=== PATIENT | male | born 1955 | race Caucasian/White ===

== ENCOUNTER 2016-12-01 16:27 | Inpatient (IN) | payer MEDICARE, MEDICAID ==
--- NOTE | 2016-12-01 17:11 | ED Physician Chart ---
Chief Complaint/HPI - Patient Information Date Seen:: 12/01/16 Time Seen:: 16:40 Chief Complaint:: SERIOUS BED SORE History of Present Illness:: THIS IS A 61 YEAR OLD CHRONICALLY ILL CEREBRAL PALSY PATIENT SENT HERE FOR EVALUATION AND TREATMENT OF A STAGE THREE DECUBITI ULCER. THE ULCER HAS BEEN THERE FOR TWO MONTHS. Allergies:: Allergies Allergy/AdvReac Type Severity Reaction Status Date / Time MDX Tramadol [Tramadol] Allergy Unknown Verified 03/22/15 17:06 MDX Acetaminophen Allergy Verified 03/22/15 17:06 [From Vicodin] MDX Codeine [Codeine] Allergy Verified 03/22/15 17:06 MDX Hydrocodone Allergy Verified 03/22/15 17:06 [From Vicodin] MDX Ibuprofen [Ibuprofen] Allergy Verified 03/22/15 17:06 Vitals:: Vital Signs - 8 hr 12/01/16 16:30 Temp 97.2 F HR 86 RR 18 BP 139/75 O2 Sat % 96 Historian:: Patient, Medical Records Review:: Nurse's Note Reviewed, Transfer documents Reviewed Review of Systems - Review of Systems General/Constitutional: No fever, No chills, No weight loss, No weakness, No diaphoresis, No edema, No loss of appetite Skin: No skin lesions, No rash, No bruising Head: No headache, No light-headedness Eyes: No loss of vision, No pain, No diplopia ENT: No earache, No nasal drainage, No sore throat, No tinnitus Neck: No neck pain, No swelling, No thyromegaly, No stiffness, No mass noted Cardio Vascular: No chest pain, No palpitations, No PND, No orthopnea, No edema Pulmonary: No SOB, No cough, No sputum, No wheezing GI: No nausea, No vomiting, No diarrhea, No pain, No melena, No hematochezia, No constipation, No hematemesis G/U: No dysuria, No frequency, No hematuria Musculoskeletal: No bone or joint pain, No back pain, No muscle pain, Other ( BED SORE FOR TWO MONTHS) Endocrine: No polyuria, No polydipsia Psychiatric: No prior psych history, No depression, No anxiety, No suicidal ideation Hematopoietic: No bruising, No lymphadenopathy Allergic/Immuno: No urticaria, No angioedema Neurological: No syncope, No focal symptoms, No weakness, No paresthesia, No headache, No seizure, No dizziness, No confusion, No vertigo Past Medical History - Past Medical History Obtainable: No Past Medical History: HTN, Dyslipidemia, PUD/GERD, Other (CEREBRAL PALSY) Family History: None Social History: Non Smoker, No Alcohol, No Drug Use, Single, Care Facility Surgical History: Appendectomy, other (BRAIN SURGERY) Family Medical History - Family Member Mother History Unknown: Yes Physical Exam - Physical Examination General/Constitutional: Awake, Well-developed, well-nourished, Alert, No distress, GCS 15, Non-toxic appearing, Ambulatory Head: Atraumatic Eyes: Lids, conjuctiva normal, PERRL, EOMI Skin: Nl inspection, No rash, No skin lesions, No ecchymosis, Well hydrated, No lymphadenopathy ENMT: External ears, nose nl, Nasal exam nl, Lips, teeth, gums nl Neck: Nontender, Full ROM w/o pain, No JVD, No nuchal rigidity, No bruit, No mass, No stridor Respiratory: Nl effort/Exclusion, Clear to Auscultation, No Wheeze/Rhonchi/Rales Cardio Vascular: RRR, No murmur, gallop, rubs, NL S1 S2 GI: No tenderness/rebounding/guarding, No organomegaly, No hernia, Normal BS's, Nondistended, No mass/bruits, No McBurney tenderness Other GI comments:: STAGE III LEFT BUTTOCKS AREA : No CVA tenderness Extremities: No tenderness or effusion, Full ROM, normal strength in all extremities, No edema, Normal digits & nails Neuro/Psych: Alert/oriented, DTR's symmetric, Normal sensory exam, Judgement/ insight normal, Mood normal, No focal deficits Other Neuro/Psych comments:: THIS PATIENT HAS SPASTIC PARALYSIS OF ALL FOUR EXTREMITIES Misc: normal gait, Normal back, No paraspinal tenderness Labs/Radiology/EKG Results - Lab Results Results: Abnormal Lab Results 12/01/16 12/01/16 12/01/16 17:03 17:03 17:03 WBC 11.0 H RBC 4.23 L Hgb 11.9 L Hct 35.7 L MCV 84.4 MCH 28.1 MCHC Differential 33.3 RDW 17.4 Plt Count 245 MPV 8.8 Neutrophils % 52.2 Lymphocytes % 38.0 Monocytes % 7.1 Eosinophils % 2.4 Basophils % 0.3 PT 10.6 INR 1.02 PTT (Actin FS) 25.7 L Sodium Potassium Chloride Carbon Dioxide Anion Gap BUN Creatinine Est GFR ( Amer) Est GFR (Non-Af Amer) BUN/Creatinine Ratio Glucose Calcium Total Bilirubin AST ALT Alkaline Phosphatase Troponin I Total Protein Albumin Globulin Albumin/Globulin Ratio Triglycerides 423 H Cholesterol 173 LDL Cholesterol Direct 125 HDL Cholesterol 23 12/01/16 12/01/16 17:03 17:03 WBC RBC Hgb Hct MCV MCH MCHC Differential RDW Plt Count MPV Neutrophils % Lymphocytes % Monocytes % Eosinophils % Basophils % PT INR PTT (Actin FS) Sodium 137 Potassium 3.8 Chloride 110 H Carbon Dioxide 19.6 L Anion Gap 11.2 BUN 23 Creatinine 0.7 Est GFR ( Amer) > 60.0 Est GFR (Non-Af Amer) > 60.0 BUN/Creatinine Ratio 32.9 Glucose 105 Calcium 9.3 Total Bilirubin 0.3 AST 37 ALT 25 Alkaline Phosphatase 46 Troponin I < 0.01 L Total Protein 6.9 Albumin 3.6 L Globulin 3.3 Albumin/Globulin Ratio 1.1 Triglycerides Cholesterol LDL Cholesterol Direct HDL Cholesterol - Radiology Results Results: CHEST X-RAY = NAD - EKG Interpretations EKG Time:: 16:42 Rate & Rhythm: RATE= 77 SINUS [place]: LEFT AXIS Assessment - Assessment General Assessment: STAGE III BED SORE, ANEMIA, CERERAL PALSY ED Septic Shock - . Is Septic Shock (SBP<90, OR Lactate>4 mmol\L) present?: No - <6hrs of presentation: Vital Signs: Vital Signs - 8 hr 12/01/16 16:30 Temp 97.2 F HR 86 RR 18 BP 139/75 O2 Sat % 96 Reassessment (Disposition) - Reassessment Reassessment Condition:: Unchanged - Diagnosis Diagnosis:: DECUBITI STAGE THREE CERBRAL PALSY ANEMIA - Patient Disposition Discharge/Transfer:: Acute Care w/in this hosp Admitting Medical Physician:: Bladimir Payton
[2016-12-01 17:15] LABS: % BASOPHILS 0.3 % (0.0-2.0); % EOSINOPHILS 2.4 % (0.0-5.0); % MONOCYTES 7.1 % (2.0-10.0); % NEUTROPHILS 52.2 % (40.0-80.0); HEMATOCRIT 35.7 % (39.0-49.0); HEMOGLOBIN 11.9 gm/dL (13.2-17.3); MEAN CELL VOLUME 84.4 fl (80-99); MEAN CORPUSCULAR HEMOGLOBIN 28.1 pg (26.0-30.0); MEAN CORPUSCULAR HGB CONC 33.3 pg (28.0-36.0); MEAN PLATELET VOLUME 8.8 fl; NEUTROPHILE ABSOLUTE 5.7 Th/cmm (1.8-8.0); PLATELET COUNT 245 Th/cmm (150-400); RED BLOOD COUNT 4.23 Mil/cmm (4.30-5.70); RED CELL DISTRIBUTION WIDTH 17.4 % (11.5-20.0)
[2016-12-01 17:25] LABS: INR 1.02 (0.5-1.4); PROTHROMBIN TIME (TEST) 10.6 SECONDS (9.5-11.5)
[2016-12-01 17:32] LABS: ALB/GLOB RATIO 1.1 (1.0-1.8); ALKALINE PHOSPHATASE 46 U/L (34-104); ANION GAP 11.2 (7.0-16.0); BILIRUBIN,TOTAL 0.3 mg/dL (0.3-1.0); BUN - UREA NITROGEN 23 mg/dL (7-25); BUN/CREATININE RATIO 32.9; CALCIUM SERUM 9.3 mg/dL (8.6-10.3); CARBON DIOXIDE 19.6 mEq/L (21.0-31.0); CHLORIDE 110 mEq/L (98-107); CHOLESTEROL 173 mg/dL (<200); CREATININE - SERUM 0.7 mg/dL (0.7-1.3); GLUCOSE 105 mg/dL (70-105); POTASSIUM SERUM 3.8 mEq/L (3.5-5.1); SGOT 37 U/L (13-39); SGPT/ALT 25 U/L (7-52); SODIUM SERUM 137 mEq/L (136-145); TRIGLYCERIDES 423 mg/dL (<150)
[2016-12-01] MEDS ORDERED: Fleet Enema 135 mL RC PRN (21:04)
[2016-12-01] MEDS ORDERED: Albuterol/Ipratropium Neb 3 ML AERS HHN PRN ×2 (21:04→23:01)
[2016-12-01] MEDS ORDERED: Non-Formulary Item 1 EA (Acetaminophen [Acetaminophen] 650 MG) PO PRN ×2 (21:04)
[2016-12-01] MEDS ORDERED: Magnesium Hydroxide (MOM) 30 mL UDC PO PRN (21:04)
[2016-12-01] MEDS ORDERED: Non-Formulary Item 1 EA (Ranitidine Hcl [Ranitidine Hcl] 150 MG) PO SCH (21:04)
[2016-12-01] MEDS ORDERED: cefTRIAXone 1 GM in Sodium Chloride 0.9% 50 ML IV SCH (21:04)
[2016-12-01 21:54] VITALS: BP 152/69
[2016-12-01] MEDS ORDERED: cefTRIAXone 1 GM in 0.9% NS 50 ML IV ONE (22:15)
[2016-12-02] MEDS ORDERED: Pneumococcal Vaccine 0.5 mL Vial IM ONE (02:34)
[2016-12-02] MEDS: NEUTRA PHOS PO SCH ×2 (06:37→21:32)
[2016-12-02 07:20] LABS: % BASOPHILS 0.4 % (0.0-2.0); % EOSINOPHILS 2.6 % (0.0-5.0); HEMATOCRIT 36.4 % (39.0-49.0); MEAN CELL VOLUME 84.6 fl (80-99); MEAN CORPUSCULAR HEMOGLOBIN 27.9 pg (26.0-30.0); MEAN PLATELET VOLUME 8.5 fl; NEUTROPHILE ABSOLUTE 4.1 Th/cmm (1.8-8.0); PLATELET COUNT 219 Th/cmm (150-400); RED CELL DISTRIBUTION WIDTH 16.8 % (11.5-20.0); WHITE BLOOD COUNT 8.8 Th/cmm (4.8-10.8)
[2016-12-02 07:48] LABS: ALKALINE PHOSPHATASE 37 U/L (34-104); ANION GAP 10.2 (7.0-16.0); BILIRUBIN,TOTAL 0.3 mg/dL (0.3-1.0); BUN - UREA NITROGEN 20 mg/dL (7-25); BUN/CREATININE RATIO 33.3; CALCIUM SERUM 9.6 mg/dL (8.6-10.3); CARBON DIOXIDE 20.7 mEq/L (21.0-31.0); CHLORIDE 109 mEq/L (98-107); CHOLESTEROL 176 mg/dL (<200); CREATININE - SERUM 0.6 mg/dL (0.7-1.3); GLUCOSE 86 mg/dL (70-105); MAGNESIUM 1.9 mg/dL (1.9-2.7); POTASSIUM SERUM 3.9 mEq/L (3.5-5.1); SGOT 31 U/L (13-39); SGPT/ALT 21 U/L (7-52); SODIUM SERUM 136 mEq/L (136-145); TRIGLYCERIDES 296 mg/dL (<150)
[2016-12-02] MEDS ORDERED: ARGININE SCH (09:00)
[2016-12-02] MEDS ORDERED: OMEGA ACID ETHYL ESTERS PO SCH (09:00)
[2016-12-02] MEDS ORDERED: ISOSORBIDE DINITRATE 5 MG PO SCH (09:00)
[2016-12-02] MEDS ORDERED: ASPIRIN 81 MG PO SCH (09:00)
[2016-12-02] MEDS ORDERED: TICAGRELOR 90 MG PO SCH (09:00)
[2016-12-02] MEDS ORDERED: Non-Formulary Item 1 EA (Omeprazole [Omeprazole] 40 MG) PO SCH (09:00)
[2016-12-02] MEDS ORDERED: Non-Formulary Item 1 EA (Ascorbic Acid [Vitamin C] 500 MG) PO SCH (09:00)
[2016-12-02] MEDS ORDERED: LISINOPRIL 10 MG PO SCH (09:00)
[2016-12-02] MEDS: Fish Oil 1,000 MG SGL PO SCH ×2 (09:58→17:55)
[2016-12-02] MEDS: Pantoprazole 40 mg EC Tab PO SCH (09:59)
[2016-12-02] MEDS: Calcium Carb/Vit D 500 mg/200 U Tab PO SCH ×2 (10:00→18:06)
[2016-12-02] MEDS: Aspirin 81mg Chewable Tab PO SCH (10:00)
[2016-12-02] MEDS: Diclofenac 75 mg Tab PO SCH ×2 (10:00→17:56)
--- NOTE | 2016-12-02 10:51 | Diagnostic Imaging Report ---
Portable chest x-ray HISTORY: Shortness of breath The heart is enlarged. Atherosclerotic vascular calcification seen in the aorta. No acute focal pulmonary processes. IMPRESSION: 1. No acute focal pulmonary processes 2. Cardiomegaly with atherosclerotic vascular changes
--- NOTE | 2016-12-02 16:23 | Consultation ---
Consult Note - Consult Note Service Date: 12/02/16 Consult Note: PHYSICIAN Consultation Note: Date of Admission: 12/01/16 Purpose of Consultation: Chief Complaint: History of Present Illness: Patient STEVIE TORRES was admitted to [facility] I with NON HEALING DECUB ULCER. Past Medical History: Diagnoses ANEMIA, UNSPECIFIED (12/01/16) ELEVATED WHITE BLOOD CELL COUNT, UNSPECIFIED (12/01/16) HYPERLIPIDEMIA, UNSPECIFIED (12/01/16) UNSPECIFIED INTELLECTUAL DISABILITIES (12/01/16) CEREBRAL PALSY, UNSPECIFIED (12/01/16) PARALYTIC SYNDROME, UNSPECIFIED (12/01/16) ESSENTIAL (PRIMARY) HYPERTENSION (12/01/16) PRESSURE ULCER OF SACRAL REGION, STAGE 3 (12/01/16) UNSPECIFIED OSTEOARTHRITIS, UNSPECIFIED SITE (12/01/16) Allergies Allergy/AdvReac Type Severity Reaction Status Date / Time acetaminophen [From Vicodin] Allergy Verified 12/01/16 17:07 codeine Allergy Verified 12/01/16 17:09 hydrocodone [From Vicodin] Allergy Verified 12/01/16 17:07 ibuprofen Allergy Verified 12/01/16 17:08 Vital Signs Temp 97 F 12/02/16 11:57 Pulse 82 12/02/16 11:57 Resp 19 12/02/16 11:57 BP 99/64 12/02/16 11:57 Pulse Ox 95 12/02/16 11:57 Intake & Output 12/01/16 12/02/16 12/02/16 18:59 06:59 18:59 Intake Total 360 Balance 360 Weight (lbs) 79.832 kg 79.832 kg Intake: Oral 360 Other: # Voids 4 # Bowel Movements 1 Stool Characteristics Soft Soft Formed Laboratory Results - last 24 hr 12/02/16 12/02/16 12/02/16 06:36 06:36 06:36 WBC 8.8 RBC 4.30 Hgb 12.0 L Hct 36.4 L MCV 84.6 MCH 27.9 MCHC Differential 33.0 RDW 16.8 Plt Count 219 MPV 8.5 Neutrophils % 46.0 Lymphocytes % 43.0 Monocytes % 8.0 Eosinophils % 2.6 Basophils % 0.4 ESR 24 H Sodium 136 Potassium 3.9 Chloride 109 H Carbon Dioxide 20.7 L Anion Gap 10.2 BUN 20 Creatinine 0.6 L Est GFR ( Amer) > 60.0 Est GFR (Non-Af Amer) > 60.0 BUN/Creatinine Ratio 33.3 Glucose 86 Calcium 9.6 Magnesium 1.9 Total Bilirubin 0.3 AST 31 ALT 21 Alkaline Phosphatase 37 C-Reactive Protein 0.3 Total Protein 7.3 Albumin 3.6 L Globulin 3.7 Albumin/Globulin Ratio 1.0 Triglycerides 296 H Cholesterol 176 LDL Cholesterol Direct 134 HDL Cholesterol 25 TSH 12/02/16 06:36 WBC RBC Hgb Hct MCV MCH MCHC Differential RDW Plt Count MPV Neutrophils % Lymphocytes % Monocytes % Eosinophils % Basophils % ESR Sodium Potassium Chloride Carbon Dioxide Anion Gap BUN Creatinine Est GFR ( Amer) Est GFR (Non-Af Amer) BUN/Creatinine Ratio Glucose Calcium Magnesium Total Bilirubin AST ALT Alkaline Phosphatase C-Reactive Protein Total Protein Albumin Globulin Albumin/Globulin Ratio Triglycerides Cholesterol LDL Cholesterol Direct HDL Cholesterol TSH 2.04 Home Medication Medication Instructions Recorded Type Acetaminophen 650 mg PO Q4H PRN 02/14/14 History Acetaminophen 650 mg PO Q4H PRN 02/14/14 History Ascorbic Acid [Vitamin C] 500 mg PO DAILY 02/14/14 History Aspirin [Low Dose Aspirin] 81 mg PO DAILY 02/14/14 History Bisacodyl [Dulcolax] 10 mg RC Q96HR PRN 02/14/14 History Calcium/Vitamin D [Calcium 1 tab PO BID 02/14/14 History Carbonate/Vitamin D 600 mg-400 Iu] Diclofenac Sodium [Diclofenac 75 mg PO BID 02/14/14 History Sodium D-R] Docusate Sodium [Dss] 200 mg PO BID 02/14/14 History Fenofibrate [Tricor] 145 mg PO DAILY 02/14/14 History Finasteride 5 mg PO QPM 02/14/14 History Isosorbide Dinitrate 5 mg PO BID 02/14/14 History Lisinopril 10 mg PO DAILY 02/14/14 History Magnesium Hydroxide [Mom] 30 ml PO Q72HR PRN 02/14/14 History Melatonin 3 mg PO HS 02/14/14 History Multimineral/Multivitamin 1 tab PO DAILY 02/14/14 History [Multivitamin & Multimineral] Na Phos, Dibasic/Na Phos, Mo 1 bottle RC Q96H PRN 02/14/14 History [Fleet Enema] Nitroglycerin [Nitrostat] 0.4 mg SL Q5MIN PRN 02/14/14 History [id number] Ethyl Esters [Lovaza] 2 gm PO BID 02/14/14 History Ranitidine HCl [Ranitidine] 150 mg PO Q12H 02/14/14 History Simvastatin [Simvastatin*] 10 mg PO HS 02/14/14 History Ticagrelor [Brilinta] 90 mg PO BID 02/14/14 History Alendronate Sodium [Fosamax] 70 mg PO QWEEK 72903/22/15 History Cran/Vitc/Mannose/Fos/Bromeln 30 ml PO BID 03/22/15 History [Uti-Stat 30 ml] Omeprazole 40 mg PO QAM 03/22/15 History Acetaminophen [Tylenol] 650 mg PO Q4H PRN MDD 3000 mg 12/01/16 History Arginine [[id number]] 1 pow NA BID 12/01/16 History Carvedilol 6.25 mg PO BID 12/01/16 History Clonidine HCl [Catapres] 1 tab PO Q6H PRN 12/01/16 History Ipratropium/Albuterol Sulfate 1 dose INH Q2H PRN 12/01/16 History [Iprat-Albut 0.5-3(2.5) mg/3 ml] Lactobacillus Acidophilus 1 tab PO TID 12/01/16 History [Probiotic Acidophilus] Phospha 250 mg PO Q8H 12/01/16 History Sodium Bicarbonate 1 tab PO BID 12/01/16 History Tamsulosin HCl [Flomax] 1 tab PO HS 12/01/16 History Current Medications Generic Name Dose Route Start Last Admin Trade Name [facility] PRN Reason Stop Dose Admin Acetaminophen 650 mg 12/01/16 21:30 Tylenol PO 01/30/17 21:29 Q4H PRN FEVER 100 AND ABOVE Acetaminophen 650 mg 12/01/16 22:18 Tylenol PO 01/30/17 22:17 Q4H PRN PAIN Albuterol/Ipratropium 3 ml 12/01/16 23:01 Duoneb Neb HHN 01/30/17 23:00 Q2H PRN SOB OR WHEEZING Alendronate Sodium 70 mg 12/01/16 23:50 Fosamax PO 01/30/17 21:03 QWEEK 729 SANJIV Ascorbic Acid 500 mg 12/02/16 09:00 12/02/16 10:00 Vitamin C PO 01/31/17 08:59 500 mg DAILY SANJIV Administration Aspirin 81 mg 12/02/16 09:00 12/02/16 10:00 Aspirin Chewable PO 01/31/17 08:59 81 mg DAILY SANJIV Administration Bisacodyl 10 mg 12/01/16 21:04 Dulcolax 10 Mg Supp RC 01/30/17 21:03 Q96HR PRN Constipation Calcium/Vitamin D 1 tab 12/02/16 09:00 12/02/16 10:00 Oscal W/Vitamin D PO 01/31/17 08:59 1 tab BID SANJIV Administration Carvedilol 6.25 mg 12/02/16 09:00 12/02/16 09:59 Coreg PO 01/31/17 08:59 6.25 mg BID SANJIV Administration Clonidine HCl 0.1 mg 12/01/16 23:52 Catapres PO 01/30/17 21:03 Q6H PRN BP MAINTENANCE (PER PROTOCOL) Diclofenac Sodium 75 mg 12/02/16 09:00 12/02/16 10:00 Voltaren PO 01/31/17 08:59 75 mg BID SANJIV Administration Docusate Sodium 200 mg 12/02/16 09:00 12/02/16 09:59 Colace PO 01/31/17 08:59 200 mg BID SANJIV Administration Fenofibrate 134 mg 12/02/16 11:00 Tricor PO 01/31/17 10:59 DAILY SANJIV Finasteride 5 mg 12/02/16 17:00 Proscar PO 01/31/17 16:59 QPM SANJIV Fish Oil 2,000 mg 12/02/16 09:00 12/02/16 09:58 [place] 3 PO 01/31/17 08:59 2,000 mg BID SANJIV Administration Heparin Sodium (Porcine) 5,000 units 12/02/16 21:00 Heparin SUBQ 01/31/17 20:59 Q12HR SANJIV Ceftriaxone Sodium 1 gm/ 50 mls @ 100 mls/hr 12/02/16 21:00 Sodium Chloride IV 01/31/17 20:59 Q24HR SANJIV Vancomycin HCl 1.25 gm/ Sodium 250 mls @ 165 mls/hr 12/02/16 21:00 Chloride IV 01/31/17 20:59 Q12HR SANJIV Isosorbide Dinitrate 5 mg 12/02/16 09:00 12/02/16 10:00 Isordil PO 01/31/17 08:59 5 mg BID SANJIV Administration Lactobacillus Rhamnosus 1 each 12/02/16 14:00 Culturelle PO 01/31/17 13:59 TID SANJIV Lisinopril 10 mg 12/02/16 09:00 12/02/16 09:57 Zestril PO 01/31/17 08:59 10 mg DAILY SANJIV Administration Magnesium Hydroxide 30 ml 12/01/16 21:04 Milk Of Magnesia PO 01/30/17 21:03 Q72HR PRN Constipation Miscellaneous 1 ea 12/01/16 21:04 Vancomycin Iv Per Pharmacy 01/30/17 21:03 PRN PRN PROTOCOL Miscellaneous 90 mg 12/02/16 09:00 Ticagrelor [Brilinta] PO 01/31/17 08:59 BID SANJIV Nitroglycerin 0.4 mg 12/01/16 21:04 Nitrostat SL 01/30/17 21:03 Q5MIN PRN Chest Pain Pantoprazole Sodium 40 mg 12/02/16 09:00 12/02/16 09:59 Protonix PO 01/31/17 08:59 40 mg QAM SANJIV Administration Simvastatin 10 mg 12/01/16 21:04 12/02/16 03:55 Zocor PO 01/30/17 21:03 Not Given HS SANJIV Protocol Sodium Bicarbonate 650 mg 12/02/16 09:00 12/02/16 09:59 Sodium Bicarbonate PO 01/31/17 08:59 650 mg BID SANJIV Administration Sodium Phosphate 135 ml 12/01/16 21:04 Fleet Enema RC 01/30/17 21:03 Q96H PRN Constipation Sodium Phosphate 250 mg 12/02/16 05:00 12/02/16 06:37 Neutra Phos 250mg PO 01/31/17 04:59 Not Given Q8HR SANJIV Tamsulosin HCl 0.4 mg 12/01/16 23:30 12/02/16 03:56 Flomax PO 01/30/17 23:29 Not Given HS SANJIV Zolpidem Tartrate 10 mg 12/02/16 21:00 Ambien PO 01/31/17 20:59 HS PRN Insomnia Review of Systems: A 12 point ROS was reviewed with the pertinent positive and negatives noted in the HPI. Social History Smoking Status Current every day smoker Drug Use No Alcohol Use unknown Family Medical History Family Medical History Start: 12/01/16 19: 01 Freq: ONCE Status: Active Document 12/01/16 22:00 MACKENZIE (Rec: 12/02/16 01:59 MACKENZIE [id number]) Family Medical History Father Ethnicity Non- Living Status Hx Family Cancer Yes Mother Ethnicity Non- Living Status Other Medical History brain tumor Physical Exam: General: HEENT: Cardio: Respiratory: Abdominal: Genital/Urinary: Extremities: Neurological: Assessment: left hip decubitus ulcer, bone is palpable at base of ulcer. Cerebral palsy, bedridden and incontinent Plan: Suggest 1. EXcisional debridement left hip ulcer 2. Diverting colostomy for incontinence Signed, Chen Buckley [id number]
[2016-12-02] MEDS ORDERED: FINASTERIDE 5 MG PO SCH (17:00)
[2016-12-02] MEDS: Lactobacillus Rhamnosus 10 Billion CFU Capsule PO SCH (20:32)
[2016-12-02] MEDS: cefTRIAXone 1 GM in 0.9% NS 50 ML IV SCH (20:33)
[2016-12-03 06:21] LABS: % BASOPHILS 0.8 % (0.0-2.0); % EOSINOPHILS 2.3 % (0.0-5.0); % LYMPHOCYTES 33.1 % (20.0-50.0); % MONOCYTES 6.1 % (2.0-10.0); % NEUTROPHILS 57.7 % (40.0-80.0); HEMATOCRIT 38.2 % (39.0-49.0); HEMOGLOBIN 12.5 gm/dL (13.2-17.3); MEAN CELL VOLUME 85.4 fl (80-99); MEAN CORPUSCULAR HEMOGLOBIN 27.9 pg (26.0-30.0); MEAN CORPUSCULAR HGB CONC 32.6 pg (28.0-36.0); MEAN PLATELET VOLUME 8.6 fl; NEUTROPHILE ABSOLUTE 5.3 Th/cmm (1.8-8.0); PLATELET COUNT 241 Th/cmm (150-400); RED BLOOD COUNT 4.47 Mil/cmm (4.30-5.70); RED CELL DISTRIBUTION WIDTH 17.4 % (11.5-20.0); WHITE BLOOD COUNT 9.3 Th/cmm (4.8-10.8)
[2016-12-03 06:48] LABS: ALB/GLOB RATIO 1.1 (1.0-1.8); ALKALINE PHOSPHATASE 36 U/L (34-104); ANION GAP 6.3 (7.0-16.0); BILIRUBIN,TOTAL 0.3 mg/dL (0.3-1.0); BUN - UREA NITROGEN 18 mg/dL (7-25); BUN/CREATININE RATIO 25.7; CALCIUM SERUM 9.4 mg/dL (8.6-10.3); CARBON DIOXIDE 25.9 mEq/L (21.0-31.0); CHLORIDE 110 mEq/L (98-107); CREATININE - SERUM 0.7 mg/dL (0.7-1.3); GLUCOSE 90 mg/dL (70-105); POTASSIUM SERUM 4.2 mEq/L (3.5-5.1); SGOT 42 U/L (13-39); SGPT/ALT 23 U/L (7-52); SODIUM SERUM 138 mEq/L (136-145)
[2016-12-03] MEDS: Fenofibrate, Micronized 134 mg Cap PO SCH (09:15)
[2016-12-03] MEDS: Pantoprazole 40 mg EC Tab PO SCH (09:16)
[2016-12-03] MEDS: Calcium Carb/Vit D 500 mg/200 U Tab PO SCH ×2 (09:16→17:16)
[2016-12-03] MEDS: Fish Oil 1,000 MG SGL PO SCH (09:16)
[2016-12-03] MEDS: Aspirin 81mg Chewable Tab PO SCH (09:16)
[2016-12-03] MEDS: Lactobacillus Rhamnosus 10 Billion CFU Capsule PO SCH ×2 (09:17→20:25)
[2016-12-03] MEDS: Diclofenac 75 mg Tab PO SCH ×2 (09:17→17:17)
--- NOTE | 2016-12-03 15:10 | General Progress Note ---
Subjective - Review of Systems Service Date: 12/03/16 Events since last encounter: conservator approves only debridement and wound vac, not diverting colostomy Objective - Results Result Diagrams: 12/03/16 05:44 12/03/16 05:44 Recent Labs: Laboratory Last Values WBC 9.3 Th/cmm (4.8-10.8) 12/03/16 05:44 RBC 4.47 Mil/cmm (4.30-5.70) 12/03/16 05:44 Hgb 12.5 gm/dL (13.2-17.3) L 12/03/16 05:44 Hct 38.2 % (39.0-49.0) L 12/03/16 05:44 MCV 85.4 fl (80-99) 12/03/16 05:44 MCH 27.9 pg (26.0-30.0) 12/03/16 05:44 MCHC Differential 32.6 pg (28.0-36.0) 12/03/16 05:44 RDW 17.4 % (11.5-20.0) 12/03/16 05:44 Plt Count 241 Th/cmm (150-400) 12/03/16 05:44 MPV 8.6 fl 12/03/16 05:44 Neutrophils % 57.7 % (40.0-80.0) 12/03/16 05:44 Lymphocytes % 33.1 % (20.0-50.0) 12/03/16 05:44 Monocytes % 6.1 % (2.0-10.0) 12/03/16 05:44 Eosinophils % 2.3 % (0.0-5.0) 12/03/16 05:44 Basophils % 0.8 % (0.0-2.0) 12/03/16 05:44 ESR 30 mm/hr (0-20) H 12/03/16 05:44 PT 10.6 SECONDS (9.5-11.5) 12/01/16 17:03 INR 1.02 (0.5-1.4) 12/01/16 17:03 PTT (Actin FS) 25.7 SECONDS (26.0-38.0) L 12/01/16 17:03 Sodium 138 mEq/L (136-145) 12/03/16 05:44 Potassium 4.2 mEq/L (3.5-5.1) 12/03/16 05:44 Chloride 110 mEq/L (98-107) H 12/03/16 05:44 Carbon Dioxide 25.9 mEq/L (21.0-31.0) 12/03/16 05:44 Anion Gap 6.3 (7.0-16.0) L 12/03/16 05:44 BUN 18 mg/dL (7-25) 12/03/16 05:44 Creatinine 0.7 mg/dL (0.7-1.3) 12/03/16 05:44 Est GFR ( Amer) > 60.0 ml/min (>90) 12/03/16 05:44 Est GFR (Non-Af Amer) > 60.0 ml/min 12/03/16 05:44 BUN/Creatinine Ratio 25.7 12/03/16 05:44 Glucose 90 mg/dL (70-105) 12/03/16 05:44 Calcium 9.4 mg/dL (8.6-10.3) 12/03/16 05:44 Magnesium 2.0 mg/dL (1.9-2.7) 12/03/16 05:44 Total Bilirubin 0.3 mg/dL (0.3-1.0) 12/03/16 05:44 AST 42 U/L (13-39) H 12/03/16 05:44 ALT 23 U/L (7-52) 12/03/16 05:44 Alkaline Phosphatase 36 U/L (34-104) 12/03/16 05:44 Troponin I < 0.01 ng/mL (0.01-0.05) L 12/01/16 17:03 C-Reactive Protein 0.3 mg/dL (0.0-0.9) 12/02/16 06:36 Total Protein 7.5 gm/dL (6.0-8.3) 12/03/16 05:44 Albumin 3.9 gm/dL (4.2-5.5) L 12/03/16 05:44 Globulin 3.6 gm/dL 12/03/16 05:44 Albumin/Globulin Ratio 1.1 (1.0-1.8) 12/03/16 05:44 Triglycerides 296 mg/dL (<150) H 12/02/16 06:36 Cholesterol 176 mg/dL (<200) 12/02/16 06:36 LDL Cholesterol Direct 134 mg/dL (75-193) 12/02/16 06:36 HDL Cholesterol 25 mg/dL (23-92) 12/02/16 06:36 TSH 2.04 uIU/ml (0.34-5.60) 12/02/16 06:36 RPR NONREACTIVE (NONREACTIVE) 12/01/16 17:03 - Physical Exam Vitals and I&O: Vital Signs Temp 97.6 F 12/03/16 08:00 Pulse 71 12/03/16 09:17 Resp 18 12/03/16 08:00 BP 107/52 12/03/16 09:17 Pulse Ox 96 12/03/16 08:00 Intake & Output 12/02/16 12/03/16 12/03/16 18:59 06:59 18:59 Intake Total 400 Balance 400 Weight (lbs) 79.832 kg 79.379 kg Intake: Intake, IV Amount 300 Vancomycin HCl 1.25 gm In 250 Sodium Chloride 0.9% 250 ml @ 165 mls/hr IV Q12HR [facility] Rx#:[id number] cefTRIAXone 1 gm In 50 Sodium Chloride 0.9% 50 ml @ 100 mls/hr IV Q24HR [facility] Rx#:[id number] Oral 100 Other: # Voids 2 # Bowel Movements 1 Stool Characteristics Soft Soft Soft Active Medications: Current Medications Acetaminophen (Tylenol) 650 mg PO Q4H PRN PRN Reason: FEVER 100 AND ABOVE Stop: 01/30/17 21:29 Acetaminophen (Tylenol) 650 mg PO Q4H PRN PRN Reason: PAIN Stop: 01/30/17 22:17 Albuterol/Ipratropium (Duoneb Neb) 3 ml HHN Q2H PRN PRN Reason: SOB OR WHEEZING Stop: 01/30/17 23:00 Alendronate Sodium (Fosamax) 70 mg PO QSAT [facility] Stop: 01/30/17 05:59 Ascorbic Acid (Vitamin C) 500 mg PO DAILY [facility] Stop: 01/31/17 08:59 Last Admin: 12/03/16 09:17 Dose: 500 mg Aspirin (Aspirin Chewable) 81 mg PO DAILY [facility] Stop: 01/31/17 08:59 Last Admin: 12/03/16 09:16 Dose: 81 mg Bisacodyl (Dulcolax 10 Mg Supp) 10 mg RC Q96HR PRN PRN Reason: Constipation Stop: 01/30/17 21:03 Calcium/Vitamin D (Oscal W/Vitamin D) 1 tab PO BID [facility] Stop: 01/31/17 08:59 Last Admin: 12/03/16 09:16 Dose: 1 tab Carvedilol (Coreg) 6.25 mg PO BID [facility] Stop: 01/31/17 08:59 Last Admin: 12/03/16 09:16 Dose: 6.25 mg Clonidine HCl (Catapres) 0.1 mg PO Q6H PRN PRN Reason: BP MAINTENANCE (PER PROTOCOL) Stop: 01/30/17 21:03 Diclofenac Sodium (Voltaren) 75 mg PO BID [facility] Stop: 01/31/17 08:59 Last Admin: 12/03/16 09:17 Dose: 75 mg Docusate Sodium (Colace) 200 mg PO BID [facility] Stop: 01/31/17 08:59 Last Admin: 12/03/16 09:17 Dose: 200 mg Fenofibrate (Tricor) 134 mg PO DAILY [facility] Stop: 01/31/17 10:59 Last Admin: 12/03/16 09:15 Dose: 134 mg Finasteride (Proscar) 5 mg PO QPM [facility] Stop: 01/31/17 16:59 Last Admin: 12/02/16 17:56 Dose: 5 mg Fish Oil (Mercer 3) 2,000 mg PO BID [facility] Stop: 01/31/17 08:59 Last Admin: 12/03/16 09:16 Dose: 2,000 mg Heparin Sodium (Porcine) (Heparin) 5,000 units SUBQ Q12HR [facility] Stop: 01/31/17 20:59 Last Admin: 12/03/16 09:17 Dose: 5,000 units Ceftriaxone Sodium 1 gm/ (Sodium Chloride) 50 mls @ 100 mls/hr IV Q24HR [facility] Stop: 01/31/17 20:59 Last Infusion: 12/02/16 21:03 Dose: Infused Vancomycin HCl 1.25 gm/ Sodium (Chloride) 250 mls @ 165 mls/hr IV Q12HR [facility] Stop: 01/31/17 20:59 Last Admin: 12/03/16 09:24 Dose: 62.5 mls/hr Isosorbide Dinitrate (Isordil) 5 mg PO BID [facility] Stop: 01/31/17 08:59 Last Admin: 12/03/16 09:15 Dose: 5 mg Lactobacillus Rhamnosus (Culturelle) 1 each PO TID [facility] Stop: 01/31/17 13:59 Last Admin: 12/03/16 09:17 Dose: 1 each Lisinopril (Zestril) 10 mg PO DAILY [facility] Stop: 01/31/17 08:59 Last Admin: 12/03/16 09:17 Dose: 10 mg Magnesium Hydroxide (Milk Of Magnesia) 30 ml PO Q72HR PRN PRN Reason: Constipation Stop: 01/30/17 21:03 Miscellaneous (Vancomycin Iv Per Pharmacy) 1 ea PRN PRN PRN Reason: PROTOCOL Stop: 01/30/17 21:03 Miscellaneous (Ticagrelor [Brilinta]) 90 mg PO BID [facility] Stop: 01/31/17 08:59 Nitroglycerin (Nitrostat) 0.4 mg SL Q5MIN PRN PRN Reason: Chest Pain Stop: 01/30/17 21:03 Pantoprazole Sodium (Protonix) 40 mg PO QAM [facility] Stop: 01/31/17 08:59 Last Admin: 12/03/16 09:16 Dose: 40 mg Simvastatin (Zocor) 10 mg PO HS [facility] PRN Reason: Protocol Stop: 01/30/17 21:03 Last Admin: 12/02/16 20:33 Dose: 10 mg Sodium Bicarbonate (Sodium Bicarbonate) 650 mg PO BID [facility] Stop: 01/31/17 08:59 Last Admin: 12/03/16 09:17 Dose: 650 mg Sodium Phosphate (Fleet Enema) 135 ml RC Q96H PRN PRN Reason: Constipation Stop: 01/30/17 21:03 Sodium Phosphate (Neutra Phos 250mg) 250 mg PO Q8HR [facility] Stop: 01/31/17 04:59 Last Admin: 12/02/16 21:32 Dose: Not Given Tamsulosin HCl (Flomax) 0.4 mg PO HS [facility] Stop: 01/30/17 23:29 Last Admin: 12/02/16 20:32 Dose: 0.4 mg Zolpidem Tartrate (Ambien) 10 mg PO HS PRN PRN Reason: Insomnia Stop: 01/31/17 20:59 Last Admin: 12/02/16 21:31 Dose: 10 mg Assessment/Plan - Problem List Patient Problems: All Active Problems LEFT SACRAL STAGE 3 ULCER (Acute) Decubitus ulcer (Acute) L89.90 Hematuria (Acute) Leukocytosis (Acute) D72.829 PNA (pneumonia) (Acute) J18.9 Quadriplegia (Acute) G82.50 Sepsis (Acute) Urinary tract infection (Acute) Nutritional Asmnt/Malnutr-PDOC - Dietary Evaluation Malnutrition Findings (Please click <Entered> for more info): Nutritional Asmnt/Malnutrition Start: 12/02/16 13: 06 Text: Status: Complete Freq: Document 12/02/16 13:06 GSARACELIS (Rec: 12/02/16 13:24 [email or web address] [id number]) Nutritional Asmnt/Malnutrition Patient General Information Nutritional Screening Consult Diagnosis ER: decubiti stage III Pertinent Medical Hx/Surgical Hx ER: HTN, dyslipidemia, PUD/ GERD, cerebral palsy, appendectomy, brain surgery Subjective Information 61 [address] consult for non-healing stage III decubiti. Visited pt during meal time, JOSE A Kate at bedside assisting with meals, no difficulties noted. Pt was slow in respones but alert, pleasant interview. Pt aware of ulcer, asked how his wound is. RD recommended Arginaid and Maegan RN agreeable to plan. RD explained recommendation to pt, pt understood and stated he takes "the powder" at SNF for wound healing as well. Unable to obtain weight, bedscale not properly calibrated. Pt appeared overweight, no wasting noted. Pt with good appetite, denied nutritional concerns at this time. Current Diet Order/ Nutrition Support 1800kcal, CURT Pertinent Medications Vitamin C, Oscal W/Vitamin D, Colace, Pepcid, Mercer 3, Culturelle, MOM, Vancomycin, Protonix, Fleet Enema, Sodium Bicarbonate, Vancomycin Pertinent Labs Reviewed. Nutritional Hx/Data Height 1.65 m Height (Calculated Centimeters) 165.1 Current Weight (lbs) 80.286 kg Weight (Calculated Kilograms) 80.3 Weight (Calculated Grams) 62911.8 [place] Body Weight 136 Weight Status Overweight GI Symptoms Food Allergies No Skin Integrity/Comment: ER note: decubiti stage III. 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 Current %PO Good (75-100%) Estimated Nutritional Goals Calories/Kcals/Kg IBW 136lb/61.8kg Kcals Calculated 1545-1854kcal (25-30kcal/kg) Protein Calculated 74-87g (1.2-1.4g/kg) Fluid: ml 1545-1854ml (1ml/kcal) Nutritional Problem 1. Problem Problem Increased protein needs related to Etiology skin integrity aeb Signs/Symptoms: admitted for stage III decubitus ulcer Intervention/Recommendation Comments 1. Continue with current diet order. Pt noted with good appetite. Pt requires assistance with meals. 2. Recommend 1 packet Arginaid and 1 packet Prosource for wound healing. Expected Outcomes/Goals Expected Outcomes/Goals 1. PO intake to meet at least 75% of estimated nutritional needs. 2. Improvements in skin integrity.
[2016-12-03] MEDS: NEUTRA PHOS PO SCH ×2 (17:18→21:00)
[2016-12-03] MEDS: cefTRIAXone 1 GM in 0.9% NS 50 ML IV SCH (20:28)
[2016-12-04] MEDS: NEUTRA PHOS PO SCH ×3 (05:30→22:45)
[2016-12-04 07:57] LABS: URINE BILIRUBIN NEGATIVE (NEGATIVE); URINE BLOOD TRACE (NEGATIVE); URINE COLOR YELLOW; URINE GLUCOSE (UA) NEGATIVE (NEGATIVE); URINE KETONE NEGATIVE (NEGATIVE); URINE PROTEIN NEGATIVE (NEGATIVE); URINE UROBILINOGEN 0.2 E.U./dL (0.2 - 1.0)
[2016-12-04 08:06] LABS: URINE BACTERIA OCCASIONAL /hpf (NONE SEEN); URINE EPITHELIAL CELLS RARE /lpf (FEW)
[2016-12-04 08:29] LABS: % EOSINOPHILS 2.2 % (0.0-5.0); % LYMPHOCYTES 37.8 % (20.0-50.0); % MONOCYTES 6.1 % (2.0-10.0); % NEUTROPHILS 50.9 % (40.0-80.0); HEMATOCRIT 35.8 % (39.0-49.0); HEMOGLOBIN 11.9 gm/dL (13.2-17.3); MEAN CELL VOLUME 84.4 fl (80-99); MEAN CORPUSCULAR HEMOGLOBIN 28.1 pg (26.0-30.0); MEAN CORPUSCULAR HGB CONC 33.3 pg (28.0-36.0); MEAN PLATELET VOLUME 8.5 fl; NEUTROPHILE ABSOLUTE 4.5 Th/cmm (1.8-8.0); PLATELET COUNT 232 Th/cmm (150-400); RED BLOOD COUNT 4.24 Mil/cmm (4.30-5.70); RED CELL DISTRIBUTION WIDTH 16.5 % (11.5-20.0); WHITE BLOOD COUNT 8.9 Th/cmm (4.8-10.8)
[2016-12-04] MEDS ORDERED: Meperidine 25 mg/mL 1mL Syr IVP PRN (08:33)
[2016-12-04 08:38] LABS: ANION GAP 9.8 (7.0-16.0); BUN - UREA NITROGEN 17 mg/dL (7-25); BUN/CREATININE RATIO 28.3; CALCIUM SERUM 9.7 mg/dL (8.6-10.3); CARBON DIOXIDE 22.3 mEq/L (21.0-31.0); CHLORIDE 109 mEq/L (98-107); CREATININE - SERUM 0.6 mg/dL (0.7-1.3); GLUCOSE 87 mg/dL (70-105); POTASSIUM SERUM 4.1 mEq/L (3.5-5.1); SODIUM SERUM 137 mEq/L (136-145)
[2016-12-04] MEDS ORDERED: fentaNYL Citrate 100 mcg/2mL Vial ONE (08:42)
[2016-12-04] MEDS ORDERED: Midazolam 1mg/ml 2 ml vial IV ONE (08:43)
[2016-12-04] MEDS ORDERED: Lactated Ringer 1,000 ML IV SCH (08:45)
--- NOTE | 2016-12-04 09:10 | Operative Report ---
Operative Report - Surgery Date of Surgery:: 12/04/16 Procedure:: excisional debridement left hip decubitus ulcer Indication for procedure:: ulcer left hip, patient is bedbound Procedure consent:: signed Anesthesia:: Anesthesiologist:Tami Anesthesia: sedation Preoperative diagnosis:: stage 3 left hip decubitus ulcer Postoperative diagnosis:: same Description of Procedure:: Procedure: the patient was given IV sedation. The ulcer was prepped with Betadine and draped. Ulcer Size: 2 by 1.5 cm, Depth 2 cm, bone at base but not exposed Sharp debridement was carried out with scissors. Cautery was used for hemotasis. Iodoform gauze was used to pack the wound. Local wound care post op will be ordered Recommendations:: local wound care post op with NSS wash and Santyl oint application daily
[2016-12-04] MEDS: Fenofibrate, Micronized 134 mg Cap PO SCH ×2 (11:10→11:11)
[2016-12-04] MEDS: Diclofenac 75 mg Tab PO SCH ×2 (11:11→18:12)
[2016-12-04] MEDS: Aspirin 81mg Chewable Tab PO SCH (11:13)
[2016-12-04] MEDS: Fish Oil 1,000 MG SGL PO SCH ×3 (11:13→18:07)
[2016-12-04] MEDS: Calcium Carb/Vit D 500 mg/200 U Tab PO SCH ×2 (11:14→18:13)
[2016-12-04] MEDS: Pantoprazole 40 mg EC Tab PO SCH (11:17)
[2016-12-04] MEDS: Lactobacillus Rhamnosus 10 Billion CFU Capsule PO SCH ×2 (11:18→22:25)
[2016-12-04] MEDS: Venelex 60gm Tube TP SCH (11:18)
[2016-12-04] MEDS: cefTRIAXone 1 GM in 0.9% NS 50 ML IV SCH (22:25)
[2016-12-05] MEDS ORDERED: Hydrocodone/APAP 5mg/325mg Tab PO PRN (02:12)
[2016-12-05] MEDS ORDERED: Morphine Sulfate 2 mg/mL 1mL Syr IVP PRN (02:20)
[2016-12-05] MEDS: NEUTRA PHOS PO SCH (05:09)
[2016-12-05] MEDS ORDERED: HYDROmorphone 1 mg/mL 1mL Syr IVP PRN (08:05)
[2016-12-05] MEDS: Lactobacillus Rhamnosus 10 Billion CFU Capsule PO SCH ×2 (08:54→13:33)
[2016-12-05] MEDS: Fish Oil 1,000 MG SGL PO SCH ×2 (08:54→17:42)
[2016-12-05] MEDS: Pantoprazole 40 mg EC Tab PO SCH (08:54)
[2016-12-05] MEDS: Calcium Carb/Vit D 500 mg/200 U Tab PO SCH ×2 (08:55→17:42)
[2016-12-05] MEDS: Diclofenac 75 mg Tab PO SCH ×2 (08:56→17:42)
[2016-12-05] MEDS: Fenofibrate, Micronized 134 mg Cap PO SCH (08:57)
--- NOTE | 2016-12-05 11:55 | Pathology Report ---
[id number] Collection date: 12/04/2016 Surgeon: Dr. Josef Buckley Specimen Description: Debridement, left buttock. Gross Description: Received in formalin are two irregular fragments of arias skin and fibroconnective tissue measuring 0.8 and 1.2 cm in greatest dimension. Sectioning shows no focal lesions. Totally submitted in one cassette. Microscopic Description: The histologic sections show ulcerated skin and subcutaneous fibroconnective tissue with areas of chronic inflammation consisting of lymphocytes and plasma cells. There is also fibrovascular tissue present consistent with granulation tissue. Diagnosis: Ulcerated skin and fibroconnective tissue showing chronic inflammation, consistent with debridement (left buttock). [facility]# [id number]
[2016-12-05] MEDS ORDERED: Sodium Phos / Potassium Phos 1.25 GM PACK PO SCH (14:45)
[2016-12-05] MEDS: Venelex 60gm Tube TP SCH (15:10)
[2016-12-05 16:24] LABS: % BASOPHILS 0.5 % (0.0-2.0); % EOSINOPHILS 1.9 % (0.0-5.0); % MONOCYTES 9.4 % (2.0-10.0); % NEUTROPHILS 56.2 % (40.0-80.0); HEMATOCRIT 36.6 % (39.0-49.0); HEMOGLOBIN 11.8 gm/dL (13.2-17.3); MEAN CORPUSCULAR HEMOGLOBIN 27.1 pg (26.0-30.0); MEAN CORPUSCULAR HGB CONC 32.2 pg (28.0-36.0); MEAN PLATELET VOLUME 7.8 fl; NEUTROPHILE ABSOLUTE 5.5 Th/cmm (1.8-8.0); PLATELET COUNT 257 Th/cmm (150-400); RED BLOOD COUNT 4.36 Mil/cmm (4.30-5.70); RED CELL DISTRIBUTION WIDTH 16.6 % (11.5-20.0); WHITE BLOOD COUNT 9.7 Th/cmm (4.8-10.8)
== END 2016-12-05 21:00 | DRG 579 ==
LOC: ER 16:27 → MSI 19:00
PROVIDERS: ADMIT Internal Medicine; ATTEND Internal Medicine
PROC: 3E0234Z Introduction of Serum, Toxoid and Vaccine into Muscle, Percutaneous Approach (ICD-10-PCS; 2016-12-02)
PROC: 0KBT0ZZ Excision of Left Lower Leg Muscle, Open Approach (ICD-10-PCS; principal; 2016-12-04)
DX: L89.223 Pressure ulcer of left hip, stage 3 (principal); L89.320 Pressure ulcer of left buttock, unstageable; G83.9 Paralytic syndrome, unspecified; L89.153 Pressure ulcer of sacral region, stage 3; I10 Essential (primary) hypertension; G80.9 Cerebral palsy, unspecified; D64.9 Anemia, unspecified; E78.5 Hyperlipidemia, unspecified; M19.90 Unspecified osteoarthritis, unspecified site; R32 Unspecified urinary incontinence; F79 Unspecified intellectual disabilities; K21.9 Gastro-esophageal reflux disease without esophagitis; Z90.49 Acquired absence of other specified parts of digestive tract; Z79.82 Long term (current) use of aspirin; Z74.01 Bed confinement status; Z23 Encounter for immunization; Z88.5 Allergy status to narcotic agent; Z88.6 Allergy status to analgesic agent; Z88.8 Allergy status to other drugs, medicaments and biological substances
CPT/HCPCS: 36415-UA; 71010-TC; 80048-TC; 80053-TC; 80061-TC; 80202-TC; 81001-TC; 82948-90; 83735-TC; 84443-TC; 84484-TC; 85025-TC; 85610-TC; 85652-TC; 85730-TC; 86141-TC; 86592-TC; 87086-90; 88304-TC; J0696; J1170; J1644; J2250; J2405; J2704; J3370; J7070; X6026; X6206; Z7610

== ENCOUNTER 2018-08-27 14:06 | Emergency (ER) | payer MEDICARE, MEDICAID ==
--- NOTE | 2018-08-27 14:23 | ED Physician Chart ---
ED Chief Complaint/HPI - Patient Information Date Seen:: 08/27/18 Time Seen:: 14:18 Chief Complaint:: fever History of Present Illness:: THIS IS A CHRONICALLY ILL [facility]ERE[facility]AL [facility] FOR [facility]UATION AND TREATMENT. THE PATIENT WAS SENT FOR FEVER AND CONGESTION, HOWEVER THERE WAS NO FEVER WHILE AND IT WAS CHECKED TWICE. Allergies:: Allergies Allergy/AdvReac Type Severity Reaction Status Date / Time acetaminophen [From Vicodin] Allergy Verified 12/01/16 17:07 codeine Allergy Verified 12/01/16 17:09 hydrocodone [From Vicodin] Allergy Verified 12/01/16 17:07 ibuprofen Allergy Verified 12/01/16 17:08 Historian:: EMS, Medical Records Review:: Nurse's Note Reviewed, Old Chart Reviewed, Transfer documents Reviewed ED Review of Systems - Review of Systems General/Constitutional: Fever (THIS PATIENT IS UNABLE TO GIVE A REVIEW OF SYSTEMS.) Skin: No skin lesions, No rash, No bruising Head: No headache, No light-headedness Eyes: No loss of vision, No pain, No diplopia ENT: No earache, No nasal drainage, No sore throat, No tinnitus Neck: No neck pain, No swelling, No thyromegaly, No stiffness, No mass noted Cardio Vascular: No chest pain, No palpitations, No PND, No orthopnea, No edema Pulmonary: No SOB, No cough, No sputum, No wheezing GI: No nausea, No vomiting, No diarrhea, No pain, No melena, No hematochezia, No constipation, No hematemesis G/U: No dysuria, No frequency, No hematuria Musculoskeletal: No bone or joint pain, No back pain, No muscle pain Endocrine: No polyuria, No polydipsia Psychiatric: No prior psych history, No depression, No anxiety, No suicidal ideation Hematopoietic: No bruising, No lymphadenopathy Allergic/Immuno: No urticaria, No angioedema Neurological: No syncope, No focal symptoms, No weakness, No paresthesia, No headache, No seizure, No dizziness, No confusion, No vertigo ED Past Medical History - Past Medical History Obtainable: Yes Past Medical History: HTN, Dyslipidemia, PUD/GERD, Dementia, Other (DECUBITI ULCERS) Family History: None Social History: Non Smoker, No Alcohol, No Drug Use, Care Facility Surgical History: Appendectomy, other (BRAIN SURGERY) Family Medical History - Family Member Father History Unknown: Yes Ethnicity: Non- Living Status: Hx Family Cancer: Yes Mother History Unknown: Yes Ethnicity: Non- Living Status: ED Physical Exam - Physical Examination General/Constitutional: Awake, Well-developed, well-nourished, Alert, No distress, GCS 15, Non-toxic appearing, Ambulatory Other Gen/Cons comments:: SKIN IS WARM AND DRY Head: Atraumatic Eyes: Lids, conjuctiva normal, PERRL, EOMI Skin: Nl inspection, No rash, No skin lesions (clean healing decubti ulcer noted ), No ecchymosis, Well hydrated, No lymphadenopathy ENMT: External ears, nose nl, Nasal exam nl, Lips, teeth, gums nl Neck: Nontender, Full ROM w/o pain, No JVD, No nuchal rigidity, No bruit, No mass, No stridor Respiratory: Nl effort/Exclusion, Clear to Auscultation, No Wheeze/Rhonchi/Rales Cardio Vascular: RRR, No murmur, gallop, rubs, NL S1 S2 GI: No tenderness/rebounding/guarding, No organomegaly, No hernia, Normal BS's, Nondistended, No mass/bruits, No McBurney tenderness : No CVA tenderness Extremities: No tenderness or effusion, Full ROM, normal strength in all extremities (THERE IS MUSCLE WASTING OF ALL FOUR EXTREMITIES .), No edema, Normal digits & nails Neuro/Psych: Alert/oriented, DTR's symmetric, Normal sensory exam, Normal motor strength, Judgement/insight normal, Mood normal, Normal gait, No focal deficits Misc: Normal back, No paraspinal tenderness ED Labs/Radiology/EKG Results - Lab Results Comments:: Abnormal Lab Results 08/27/18 08/27/18 08/27/18 14:15 14:15 14:15 WBC RBC Hgb Hct MCV MCH MCHC Differential RDW Plt Count MPV Neutrophils % Lymphocytes % Monocytes % Eosinophils % Basophils % PT INR PTT (Actin FS) Sodium 139 Potassium 3.9 Chloride 107 Carbon Dioxide 21.2 Anion Gap 14.7 BUN 15 Creatinine 0.6 L Est GFR ( Amer) > 60.0 Est GFR (Non-Af Amer) > 60.0 BUN/Creatinine Ratio 25.0 Glucose 110 H Calcium 10.3 Total Bilirubin 0.6 AST 93 H ALT 37 Alkaline Phosphatase 61 Troponin I < 0.01 L Total Protein 8.0 Albumin 3.9 L Globulin 4.1 Albumin/Globulin Ratio 1.0 TSH 0.58 Urine Source Urine Color Urine Clarity Urine pH Ur Specific [place] Urine Protein Urine Glucose (UA) Urine Ketones Urine Blood Urine Nitrate Urine Bilirubin Urine Urobilinogen Ur Leukocyte Esterase Urine RBC Urine WBC Ur Epithelial Cells Calcium Oxalate Crystal Urine Bacteria 08/27/18 08/27/18 08/27/18 14:55 14:55 15:20 WBC 14.1 H RBC 4.81 Hgb 14.4 Hct 42.9 MCV 89.2 MCH 30.0 MCHC Differential 33.6 RDW 15.4 Plt Count 259 MPV 7.7 Neutrophils % 74.3 Lymphocytes % 17.3 L Monocytes % 6.9 Eosinophils % 0.8 Basophils % 0.7 PT 11.1 INR 1.07 PTT (Actin FS) 26.0 Sodium Potassium Chloride Carbon Dioxide Anion Gap BUN Creatinine Est GFR ( Amer) Est GFR (Non-Af Amer) BUN/Creatinine Ratio Glucose Calcium Total Bilirubin AST ALT Alkaline Phosphatase Troponin I Total Protein Albumin Globulin Albumin/Globulin Ratio TSH Urine Source CLEAN C Urine Color YELLOW Urine Clarity CLOUDY Urine pH 7.0 Ur Specific [place] 1.020 Urine Protein NEGATIVE Urine Glucose (UA) NEGATIVE Urine Ketones NEGATIVE Urine Blood NEGATIVE Urine Nitrate POSITIVE H Urine Bilirubin NEGATIVE Urine Urobilinogen 4.0 H Ur Leukocyte Esterase SMALL H Urine RBC 2-5 H Urine WBC 10-25 H Ur Epithelial Cells FEW Calcium Oxalate Crystal FEW Urine Bacteria MANY H - Radiology Results Results: CHEST X-RAY = NAD - EKG Interpretations EKG Time:: 14:56 Rate & Rhythm: rate = sinus [place]: right axis ED Assessment - Assessment General Assessment: FEVER ED Septic Shock - . Is Septic Shock (SBP<90, OR Lactate>4 mmol\L) present?: No ED Reassessment (Disposition) - Reassessment Reassessment Condition:: Improved - Diagnosis Diagnosis:: URINARY TRACT INFECTION - Aftercare/Follow up Instructions Aftercare/Follow-Up Instructions:: Counseled pt regarding lab results/diagnosis & need follow up, Refer to Discharge Instructions, Counseled pt & family regarding lab results/diagnosis & need follow up Notes:: THE PATIENT WANTS TO GO BACK TO [facility]. Medication Prescribed:: CIPRO AND Z-DIANA - Patient Disposition Discharge/Transfer:: Detention Care - SNF Condition at Disposition:: Improved
--- NOTE | 2018-08-27 15:05 | Diagnostic Imaging Report ---
Portable chest x-ray HISTORY: Fever The heart is enlarged. Patient is rotated. No definite focal pulmonary processes. Atherosclerotic calcination seen within the aortic arch. Old right rib fracture. No acute pulmonary processes. IMPRESSION: 1. No acute focal pulmonary processes 2. Suggestion of cardiomegaly with atherosclerotic vascular changes
[2018-08-27 15:22] LABS: ALBUMIN 3.9 gm/dL (4.2-5.5); ALKALINE PHOSPHATASE 61 U/L (34-104); ANION GAP 14.7 (7.0-16.0); BILIRUBIN,TOTAL 0.6 mg/dL (0.3-1.0); BUN - UREA NITROGEN 15 mg/dL (7-25); CALCIUM SERUM 10.3 mg/dL (8.6-10.3); CARBON DIOXIDE 21.2 mEq/L (21.0-31.0); CHLORIDE 107 mEq/L (98-107); CREATININE - SERUM 0.6 mg/dL (0.7-1.3); GFR AFRICAN-AMERICAN > 60.0 ml/min (>90); GFR NON AFRICAN-AMERICAN > 60.0 ml/min; GLUCOSE 110 mg/dL (70-105); POTASSIUM SERUM 3.9 mEq/L (3.5-5.1); SGOT 93 U/L (13-39); SGPT/ALT 37 U/L (7-52); SODIUM SERUM 139 mEq/L (136-145)
[2018-08-27 15:30] LABS: URINE SOURCE CLEAN C
[2018-08-27 15:35] LABS: INR 1.07 (0.5-1.4); PROTHROMBIN TIME (TEST) 11.1 SECONDS (9.5-11.5)
[2018-08-27 15:37] LABS: URINE BILIRUBIN NEGATIVE (NEGATIVE); URINE BLOOD NEGATIVE (NEGATIVE); URINE GLUCOSE (UA) NEGATIVE (NEGATIVE); URINE KETONE NEGATIVE (NEGATIVE); URINE LEUKOCYTE ESTERASE SMALL (NEGATIVE); URINE MICROSCOPIC INDICATED? YES; URINE NITRATE POSITIVE (NEGATIVE); URINE PROTEIN NEGATIVE (NEGATIVE)
[2018-08-27 15:39] LABS: URINE CLARITY CLOUDY (CLEAR); URINE COLOR YELLOW
[2018-08-27 15:44] LABS: URINE BACTERIA MANY /hpf (NONE SEEN); URINE EPITHELIAL CELLS FEW /lpf (FEW)
[2018-08-27 15:48] LABS: % BASOPHILS 0.7 % (0.0-2.0); % EOSINOPHILS 0.8 % (0.0-5.0); % LYMPHOCYTES 17.3 % (20.0-50.0); % MONOCYTES 6.9 % (2.0-10.0); % NEUTROPHILS 74.3 % (40.0-80.0); BASOPHILE ABSOLUTE 0.1 Th/cumm (0-0.2); EOSINOPHILE ABSOLUTE 0.1 Th/cmm (0.1-0.4); HEMATOCRIT 42.9 % (41.0-60); HEMOGLOBIN 14.4 gm/dL (12-16); LYMPHOCYTE ABSOLUTE 2.4 Th/cmm (1.5-3.0); MEAN CELL VOLUME 89.2 fl (80-99); MEAN CORPUSCULAR HGB CONC 33.6 pg (28.0-36.0); MEAN PLATELET VOLUME 7.7 fl; NEUTROPHILE ABSOLUTE 10.5 Th/cmm (1.8-8.0); PLATELET COUNT 259 Th/cmm (150-400); RED BLOOD COUNT 4.81 Mil/cmm (4.30-5.70); RED CELL DISTRIBUTION WIDTH 15.4 % (11.5-20.0); WHITE BLOOD COUNT 14.1 Th/cmm (4.8-10.8)
== END 2018-08-27 16:30 ==
LOC: ER 14:06
DX: N39.0 Urinary tract infection, site not specified (principal); I10 Essential (primary) hypertension; E78.5 Hyperlipidemia, unspecified; K21.9 Gastro-esophageal reflux disease without esophagitis; F03.90 Unspecified dementia, unspecified severity, without behavioral disturbance, psychotic disturbance, mood disturbance, and anxiety; Z90.49 Acquired absence of other specified parts of digestive tract; Z88.5 Allergy status to narcotic agent; Z88.6 Allergy status to analgesic agent
CPT/HCPCS: 99284; 96372; 93005; 71045; 84484; 36415; 84443; 85025; 85610; 85730; 87086; 81001; 80053; 87040 ×2; J0696